=== PATIENT | male | born 1990 | race Caucasian/White ===

== ENCOUNTER 2023-03-13 04:49 | Day surgery (SDC) | payer OTHER ==
[~2023-03-13] VITALS: Ht 182.9 cm; Wt 97.0 kg
[2023-03-13] VITALS (227 sets, daily range): BP systolic 85–137; BP diastolic 42–94
[2023-03-13 08:16] LABS: BASO% 0.4 % (0-3); HEMOGLOBIN 13.3 g/dl (14.0-18.0); IMMATURE GRANULOCYTES 0.3 % (0.0-5.0); LYMPH% 20.8 % (15-41); MEAN CELL VOLUME 87.6 fL CALC (80.0-100.0); MEAN CORPUSCULAR HGB 29.9 pG CALC (26.0-32.0); MEAN CORPUSCULAR HGB CONC 34.1 g/dL CAL (32.0-36.0); MONO% 8.8 % (2-13); NEUT# 4.3 thou/uL (1.82-7.42); NEUT% 55.7 % (42-76); RED BLOOD COUNT 4.45 mill/uL (4.70-6.10)
[2023-03-13 08:36] LABS: ALBUMIN 4.4 g/dL (3.2-5.0); ALKALINE PHOSPHATASE 72 u/l (38-126); ANION GAP 11 (6-22 (CALC)); BILIRUBIN, TOTAL 0.8 mg/dL (0.2-1.3); BUN 19 mg/dL (9-20); BUN/CREATININE RATIO 20 (12-20 (CALC)); CARBON DIOXIDE 29 mmol/l (22-30); CHLORIDE 100 mmol/l (95-108); CREATININE 0.9 mg/dL (0.7-1.3); GFR FOR AFR.AMER. > 60 ML/MIN (>=60 (CALC)); GFR OTHER RACES > 60 ML/MIN (>=60 (CALC)); POTASSIUM 3.7 mmol/l (3.5-5.1); SGOT/AST 30 u/l (17-59); SODIUM 137 mmol/l (137-146); TOTAL PROTEIN 7.6 g/dL (6.3-8.2)
[2023-03-13] MEDS ORDERED: SEROQUEL100 MG PO (08:37)
[2023-03-13] MEDS ORDERED: ATIVAN1 M1 PO (08:38)
[2023-03-13] MEDS ORDERED: NALTREXONE50 MG PO (15:54)
[2023-03-13] MEDS ORDERED: CLONIDINE0.1 MG PO (15:55)
[2023-03-13] MEDS ORDERED: KLONOPIN2 MG PO (15:56)
[2023-03-14 00:12] VITALS: BP 108/66
[2023-03-14 03:33] VITALS: BP 123/69
[2023-03-14 07:57] LABS: BASO% 0.1 % (0-3); HEMATOCRIT 35.3 % (39.0-50.0); HEMOGLOBIN 12.8 g/dl (14.0-18.0); IMMATURE GRANULOCYTES 0.3 % (0.0-5.0); LYMPH% 7.5 % (15-41); MEAN CELL VOLUME 84.9 fL CALC (80.0-100.0); MEAN CORPUSCULAR HGB 30.8 pG CALC (26.0-32.0); MEAN CORPUSCULAR HGB CONC 36.3 g/dL CAL (32.0-36.0); MONO% 5.1 % (2-13); NEUT# 10.31 thou/uL (1.82-7.42); RED BLOOD COUNT 4.16 mill/uL (4.70-6.10); RED CELL DISTRI WIDTH 11.5 % (11.5-15.5)
[2023-03-14 08:12] LABS: ALBUMIN 3.9 g/dL (3.2-5.0); ALKALINE PHOSPHATASE 66 u/l (38-126); ANION GAP 14 (6-22 (CALC)); BILIRUBIN, TOTAL 0.9 mg/dL (0.2-1.3); BUN 23 mg/dL (9-20); BUN/CREATININE RATIO 24 (12-20 (CALC)); CARBON DIOXIDE 22 mmol/l (22-30); CHLORIDE 101 mmol/l (95-108); GFR FOR AFR.AMER. > 60 ML/MIN (>=60 (CALC)); GFR OTHER RACES > 60 ML/MIN (>=60 (CALC)); MAGNESIUM 1.9 mg/dL (1.6-2.3); POTASSIUM 3.7 mmol/l (3.5-5.1); SGOT/AST 37 u/l (17-59); SODIUM 133 mmol/l (137-146); TOTAL PROTEIN 6.7 g/dL (6.3-8.2)
[2023-03-14 08:43] VITALS: BP 125/66
[2023-03-14 09:17] VITALS: BP 125/66
== END 2023-03-14 17:01 | disposition home or self-care (01) | DRG 897 ==
LOC: ANR 04:49 → MS2 04:51 → ANR 09:00 → MS2 18:02 → ANR 03-14 17:01
PROVIDERS: ATTEND Anesthesiology Critical Care Medicine
DX: F11.20 Opioid dependence, uncomplicated (principal)
CPT/HCPCS: J0131; J2354; J3475